=== PATIENT | male | born 1970 | race Caucasian/White ===

== ENCOUNTER 2016-08-17 05:57 | Inpatient (IN) | payer OTHER ==
[2016-08-17] MEDS ORDERED: METOCLOPRAMIDE 10 MG TABLET PO ONE (06:00)
[2016-08-17] MEDS ORDERED: ACETAMINOPHEN 1000MG/100 ML PREMIX IV ONE (06:00)
[2016-08-17] MEDS ORDERED: CELECOXIB 100 MG CAPSULE PO ONE (06:00)
[2016-08-17] MEDS ORDERED: FAMOTIDINE 20MG TABLET PO ONE (06:00)
[2016-08-17] MEDS ORDERED: MECLIZINE 25 MG TABLET PO ONE (06:00)
[2016-08-17] MEDS ORDERED: CLINDAMYCIN 600MG/50ML PREMIX 50 ML IVPB ONE (06:00)
[2016-08-17] MEDS ORDERED: RINGERS SOLUTION,LACTATED 1,000 ML IV SCH (09:45)
[2016-08-17] MEDS ORDERED: SENNOSIDES/DOCUSATE SODIUM UD CAPSULE PO PRN (09:45)
[2016-08-17] MEDS ORDERED: METOCLOPRAMIDE HCL 10 MG/2 ML VIAL IVP PRN (09:45)
[2016-08-17] MEDS ORDERED: DIPHENHYDRAMINE HCL 25 MG CAPSULE PO PRN (09:45)
[2016-08-17] MEDS ORDERED: OXYCODONE HCL 5 MG TABLET PO PRN (09:45)
[2016-08-17] MEDS ORDERED: MAGNESIUM HYDROXIDE 30 ML UDC PO PRN (09:45)
[2016-08-17] MEDS ORDERED: AL HYDROX/MAG HYDROX 30ML UD PO PRN (09:45)
[2016-08-17] MEDS ORDERED: TRAMADOL HCL 50 MG TABLET PO PRN ×2 (09:45)
[2016-08-17] MEDS ORDERED: ONDANSETRON HCL IV 4 MG/2 ML VIAL IVP PRN (09:45)
[2016-08-17] MEDS ORDERED: ZOLPIDEM TARTRATE 5 MG TABLET PO PRN (09:45)
[2016-08-17] MEDS: HYDROMORPHONE HCL 1 MG/ML CPJ IVP PRN ×4 (09:55→23:53)
[2016-08-17] MEDS ORDERED: TRANEXAMIC ACID 1,000 MG in 0.9 % SODIUM CHLORIDE 100ML 100 ML IVPB ONE (11:00)
[2016-08-17] MEDS: OXYCODONE HCL 5 MG TABLET PO PRN ×3 (11:15→21:28)
[2016-08-17] MEDS: ACETAMINOPHEN 1,000 MG/ 100 ML IV SCH ×4 (12:27→19:42)
[2016-08-17] MEDS ORDERED: BUPIVACAINE LIPOSOME 266MG/20ML VIAL IV ONE (14:12)
[2016-08-17] MEDS ORDERED: TRANEXAMIC ACID 1,000 MG/10 ML ML IV ONE (14:12)
[2016-08-17] MEDS ORDERED: BUPIVACAINE 0.25% W/EPI MPF 30ML VIAL IVP ONE (14:12)
--- NOTE | 2016-08-17 14:39 | Rehab Evaluation ---
Patient Information - Patient Information Diagnosis: OA right knee Ordered Treatment: PT Evaluate and Treat Status: Initial Evaluation Surgery: Yes (TKA right) Date of Surgery: 08/17/16 Past Medical/Surgical Hx: PAST MEDICAL/SURGICAL HISTORY Past Surgical History umbilical hernia repair; varicose vein repair; knee scopes PMH - Respiratory Hx Respiratory Disorders No Hx Pneumonia Yes: in past PMH - Cardiovascular Hx Cardiovascular Disorders Yes Hx Hypertension Yes Exercise Tolerance Good Comment: high cholesterol PMH - Neuro Hx Neurological Disorders No PMH - GI Hx Gastrointestinal Disorders No PMH - Hx Genitourinary Disorders No PMH - Endocrine Hx Endocrine Disorders No PMH - Musculoskeletal Hx Musculoskeletal Disorders Yes Hx Arthritis Yes Comment: R knee problems PMH - Psych Hx Psychiatric Problems No PMH - Hematology/Oncology Hx Hematology/Oncology No Disorders Precautions: [place], Fall - Time With Patient Total Time Spent With Patient (Min): 30 Treatment Procedures: Detail (Patient seen in room and feeling better with meds but claims does not need to go to bathroom yet. Removed CPM machine from bed then reviewed exercises with patient: quad, ham and glut sets, SLR with assist, heel slide and ankle pumps. Supine to sit with assist of trapeze and therapist for right LE, sit to stand with min assist after adjusted FWW for height, stepped in place as did not need to go to bathroom yet and IV in place. Back into bed with patient able to lift own right LE with left, replaced CPM, cryocuff and compressive pads for LES. Call light and tray table close and family close by.) Subjective Information - Subjective Information Per Patient Objective Data - Pain Pain Present: Yes Pain Scale Used: Numeric (1 - 10) (5-6) - Mental Status Patient Orientation: Oriented x3 - Visual Perception Appears within normal limits for therapeutic activities - ROM Within normal limits (Except right knee 0-55 degrees on CPM at this time.) - Strength/Tone Within normal limits (Able to do SLR with very little assist, quads weak yet.) - Coordination Appears within normal limits for therapeutic activities - Bed Mobility Needs Assist (Needs slight assist initially for up to edge of bed, up in bed with trapeze.) - Transfers Needs Assist (Supine to sit with min assist right LE, sit to stand with cues only and gait belt in place for safety, FWW.) - Balance Balance Sitting: Good Balance Standing: Good - Sensation Intact - Gait Detail (Marched in place 2-3 steps with FWW WBAT.) Therapy Assessment - Therapy Assessment Detail (Doing fairly well but has a lot of pain since spinal anesthesia wore off.) Patient Education - Patient Education Teaching Topic: Equipment Use, Exercise/Activity Response: Return Demonstration Teaching Method: Demonstration Teaching Recipient: Patient Barriers To Learning: None Problem List - Problem List Physical Therapy Problem List: Detail (1. Decreased normal mobility secondary to surgery 2. Decreased gait 3. Decreased function in general.) Goals - Goals Physical Therapy Goals: 1. Patient will be independent with bed mobility and supine to sit. 2. Patient will be able to ambulate community distances for going home safely. 3. Patient will be able to participate and self-care if not be independent. Prognosis - Prognosis Good (Some increased pain, maybe more than expected by this patient at this time.) Plan - Plan Physical Therapy Plan: Continue PT BID tomorrow and hopefully get ready to discharge home tomorrow night or Sunday am. Exercises, gait and steps necessary so can go home safely.
[2016-08-17] MEDS ORDERED: PROPOFOL 10 MG/ML VIAL IV ONE (15:45)
[2016-08-17] MEDS ORDERED: FENTANYL PF 100MCG/2ML VIAL IV ONE (15:45)
[2016-08-17] MEDS ORDERED: MIDAZOLAM HCL 2MG/2ML VIAL IV ONE (15:45)
[2016-08-17] MEDS: CLINDAMYCIN IV SCH ×2 (16:28→23:56)
[2016-08-17] MEDS: SODIUM CHLORIDE 0.9% IV SCH ×2 (16:28→23:56)
[2016-08-17] MEDS: FONDAPARINUX 2.5 MG/0.5 ML SYR SQ SCH (21:30)
[2016-08-18] MEDS: OXYCODONE HCL 5 MG TABLET PO PRN (01:43)
[2016-08-18] MEDS: ACETAMINOPHEN 1,000 MG/ 100 ML IV SCH ×2 (01:44)
[2016-08-18] MEDS: HYDROMORPHONE HCL 1 MG/ML CPJ IVP PRN ×3 (03:34→06:34)
[2016-08-18] MEDS: CLINDAMYCIN IV SCH (06:34)
[2016-08-18] MEDS: SODIUM CHLORIDE 0.9% IV SCH (06:34)
[2016-08-18] MEDS: PATIENT OWN MED: ATENOLOL 50 MG PO SCH ×3 (06:39→13:22)
[2016-08-18 06:41] LABS: HEMATOCRIT 41.3 % (42.0-52.0); HEMOGLOBIN 14.5 gm/dl (14.0-18.0); MEAN CELL VOLUME 84.5 fl (81-97); MEAN CORPUSCULAR HEMOGLOBIN 29.7 pg (27-33); MEAN CORPUSCULAR HGB CONC 35.1 g/dl (32-36); MEAN PLATELET VOLUME 11.2 fl (7.4-10.4); PLATELET COUNT 198 K/uL (130-400); RED BLOOD COUNT 4.89 M/uL (4.40-5.70); RED CELL DISTRIBUTION WIDTH 12.6 % (11.5-14.5); WHITE BLOOD COUNT W/O DIFF 15.7 K/uL (4.2-12.2)
[2016-08-18] MEDS: PATIENT OWN MED: PRAVASTATIN 40 MG PO SCH ×2 (06:41→13:22)
[2016-08-18] MEDS: PATIENT OWN MED: LOSARTAN 100 MG PO SCH ×2 (06:41→13:22)
[2016-08-18 06:44] LABS: INR 1.02; PROTHROMBIN TIME (PATIENT) 11.5 SECONDS (9.5-12.1)
[2016-08-18] MEDS: OXYCODONE/APAP 7.5MG/325MG TABLET PO PRN ×2 (09:13→12:48)
[2016-08-18] MEDS ORDERED: OXYCODONE/APAP 7.5MG/325MG TABLET PO PRN (09:45)
[2016-08-18] MEDS ORDERED: HYDROCODONE/APAP 7.5/325MG TABLET PO PRN ×2 (09:45)
[2016-08-18] MEDS ORDERED: ACETAMINOPHEN 325 MG TAB PO PRN (09:45)
[2016-08-18] MEDS ORDERED: CELECOXIB 100 MG CAPSULE PO SCH (10:00)
--- NOTE | 2016-08-18 10:41 | Physical Therapy Tx Note ---
Physical Therapy Tx Note - Treatment Note Tolerated: Good (Patient has quite a bit of pain yet especially with CPM so machine off today. Patient did very well with weightbearing today as tolerated. Able to do exercises even heel slide but quite a lot of pain yet with same.) Total Time Spent With Patient: 30 Physical Therapy Tx Note: Detail (Patient seen bedside and has had drain and IV removed, unhooked cryocuff and supine to sit with only slight assist with right LE, sit to stand with CGA and ambulated with FWW 40 feet into frye and back to bed with CGA only. Reviewed exercises and tried some seated then supine. Patient required only slight assist to lift leg back into bed, and difficult to do quad sets yet. Seated exercises for knee flexion and assist with extension. Re-attached cryocuff and compressive stockings.) Physical Therapy Problem List: Detail (1. Decreased normal mobility secondary to surgery 2. Decreased gait 3. Decreased function in general.) Physical Therapy Goals: 1. Patient will be independent with bed mobility and supine to sit. 2. Patient will be able to ambulate community distances for going home safely. 3. Patient will be able to participate and self-care if not be independent. Prognosis: Good (Able to ambulate safely with FWW and CGA but elevates shoulders , concentrating on shoulder depression.) Physical Therapy Plan: Continue PT BID tomorrow and hopefully get ready to discharge home tomorrow night or Sunday am. Exercises, gait and steps necessary so can go home safely.
--- NOTE | 2016-08-18 14:59 | Physical Therapy Tx Note ---
Physical Therapy Tx Note - Treatment Note Tolerated: Good (Patient still c/o a lot of pain, sitting in recliner chair is much better than being in bed and patient comfortable walking and safe with FWW now. Able to ambulate safely on stairs with rail and FWW.) Total Time Spent With Patient: 30 Physical Therapy Tx Note: Detail (Patient seen in room and seated in recliner leaned way back so that LES elevated above heart. Able to lower chair but came down quite fast at the end even with assistance and caused increased knee pain. Sit to stand with CGA only, ambulate 50 plus feet to stairs, ambulate down stairs three steps with rail and FWW, able to do correctly with minimal cues then back up three steps with rail and folded FWW. Ambulated back to bathroom and patient able to stand to void without assist then ambulated to chair and resumed reclined position without assist. Replaced cryocuff and call light, tray table close. Does not want to do any more exercises today. Does want to go home today if available.) Physical Therapy Problem List: Detail (1. Decreased normal mobility secondary to surgery 2. Decreased gait 3. Decreased function in general.) Physical Therapy Goals: 1. Patient will be independent with bed mobility and supine to sit. 2. Patient will be able to ambulate community distances for going home safely. 3. Patient will be able to participate and self-care if not be independent. Prognosis: Good (Patient doing much better with mobility now and slowly able to tolerate more activity. Wants to go home today and probably will do better in own environment.) Physical Therapy Plan: Continue PT BID tomorrow and hopefully get ready to discharge home tomorrow night or Sunday am. Exercises, gait and steps necessary so can go home safely. Patient is doing better and should do well going to own home today.
[2016-08-18] MEDS: FONDAPARINUX 2.5 MG/0.5 ML SYR SQ SCH (15:07)
--- NOTE | 2016-08-21 10:42 | Operative Note ---
DATE OF SURGERY: 08/17/2016 PREOPERATIVE DIAGNOSIS: Primary osteoarthritis of the right knee. POSTOPERATIVE DIAGNOSIS: Primary osteoarthritis of the right knee. OPERATIVE PROCEDURE: Right total knee arthroplasty. PROCEDURE: This 46-year-old male was taken to the operating room and placed in the supine position on the operating room table. Spinal anesthesia was induced by Department of Anesthesia. The right lower extremity was elevated. It was prepped with Hibiclens and draped in the usual sterile fashion. It was exsanguinated, and the tourniquet inflated to 300 mmHg. An anterior longitudinal midline incision was made followed by medial parapatellar arthrotomy incision. An intracondylar drill hole was made through the intramedullary alignment herberth and the distal femoral cutting block was pinned in 6 degrees of valgus and a 9 mm cut was made. Wafer of bone was removed. Sizing jig was affixed. A size 72.5 was seen to be the appropriate size. A 4-in-1 cutting block was then pinned in 3 degrees of external rotation. Appropriate cuts were made, and the wafers of bone were removed. We then directed our attention to the intercondylar notch and we resected the anterior cruciate ligament. The extramedullary alignment guide was then used to cut the proximal tibia, referencing a 10 mm cut off the lateral tibial plateau; however, because of bone loss on the medial side, an additional 2 mm was taken to get below the medial subchondral bone. We subsequently made the cut after the appropriate alignment had been assured, and a 3 degree posterior slope cut was made. We then resected the remnants of the menisci and osteophytes from the posterior aspect of the joint. Osteophytes were removed from around the proximal medial tibial plateau as well. The tibia was measured to a size 83. Stem punch was subsequently used. We then directed our attention to trial components, and a 12 mm anterior stabilized bearing seemed to the appropriate size given its full range of motion with excellent stability. The patella was measured and cut and restored to anatomic height with a 40 x 10 mm patella. The patellofemoral joint was stable. All trial components were then removed. Exparel was injected into the posteromedial and lateral corners of the joint, and after the insertion of all components, the remainder of the Exparel was injected into the periosteum and joint capsule, the proximal tibia, and distal femur. The wound was copiously irrigated with pulsed lavage lactated Ringer's solution and all debris removed from the joint. The bony surfaces were dried. All components were cemented and excess cement was removed after the insertion of each component. Initially, we placed the tibia base plate followed by the 12 mm tibial bearing, and the femur, and finally the patella. Once the cement had hardened, he was again take through range of motion and found to be very stable. Drain was placed through a separate stab incision. The arthrotomy incision was then closed with #2 Vicryl, subcutaneous tissue closed with O Vicryl, and the skin was stapled. Polar Care applied, and the patient taken to the recovery room in satisfactory condition. GROSS PATHOLOGY: This patient demonstrated a severe medial compartment osteoarthritis. There was evidence of a tear of the medial meniscus as well. Patient's ACL was clearly torn as well. The patient had marked osteophyte formation on the medial tibial plateau and the medial femoral condyle. Final components inserted were a [employer] Vanguard size 72.5 cruciate-retaining femoral component, an 83 tibia base plate, a 12 mm anterior stabilized D1 bearing, and a size 40 x 10 mm patella was used. Fede [facility] centerDO ashley CC: CHANDNI OSRIANO D.O. NICOLE
--- NOTE | 2016-08-21 17:59 | Discharge Summary ---
DATE OF ADMISSION: 08/17/2016 DATE OF DISCHARGE: 08/19/2016 ADMITTING DIAGNOSIS: Osteoarthritis of the right knee. DISCHARGE DIAGNOSIS: Osteoarthritis of the right knee. OPERATIVE PROCEDURE: Elective right total knee arthroplasty. This 46-year-old male was taken to the operating room for total knee arthroplasty on 08/17/2016 and tolerating the operative procedure well. The drain was removed the first postoperative day. He progressed well with physical therapy and was ready for discharge on 08/19/2016. The patient did not demonstrate any sign of complication during the course of his hospitalization. The patient will be discharged on 08/19/2016 with outpatient physical therapy. He will wear his JULES hose during the day and remove them at night. He will take aspirin 325 mg b.i.d. He was given a prescription for Percocet 7.5 one or two every 6 hours as necessary for pain and he was given 80. Routine wound care instructions were given. He will follow up in the office in 2 weeks. Should he have any problems prior to being seen, he was instructed to call my office. DO NICOLE Cantu
== END 2016-08-18 19:25 | disposition home or self-care (01) | DRG 470 ==
LOC: MEDSURG 05:57
PROVIDERS: ADMIT Orthopaedic Surgery; ATTEND Orthopaedic Surgery
PROC: 0SRC0J9 Replacement of Right Knee Joint with Synthetic Substitute, Cemented, Open Approach (ICD-10-PCS; principal; 2016-08-17 07:30)
DX: M17.11 Unilateral primary osteoarthritis, right knee (principal); I10 Essential (primary) hypertension; E78.00 Pure hypercholesterolemia, unspecified
CPT/HCPCS: 85025; 85610; 94760; 97110; 97116; 97161; 97530; J1170; J7120

== ENCOUNTER 2018-08-27 05:48 | Day surgery (SDC) | payer BC ==
[2018-08-27] MEDS ORDERED: FENTANYL PF 100MCG/2ML VIAL IV ONE (05:49)
[2018-08-27] MEDS ORDERED: LIDOCAINE 2% MDV (20MG/ML) 20ML VIAL IV ONE (05:49)
[2018-08-27] MEDS ORDERED: DEXAMETHASONE 4 MG/ML 1ML VIAL IVP ONE (05:49)
[2018-08-27] MEDS ORDERED: TRANEXAMIC ACID 1,000 MG/10 ML ML IV ONE (05:49)
[2018-08-27] MEDS ORDERED: ROPIVACAINE HCL (NAROPIN) /PF 5MG/ML 20ML VIAL IV ONE (05:49)
[2018-08-27] MEDS ORDERED: 0.9 % SODIUM CHLORIDE 100ML 100 ML IV ONE (05:49)
[2018-08-27] MEDS ORDERED: MIDAZOLAM HCL 2MG/2ML VIAL IV ONE (05:49)
[2018-08-27] MEDS ORDERED: PROPOFOL 10 MG/ML VIAL IV ONE (05:49)
[2018-08-27] MEDS ORDERED: MECLIZINE 25 MG TABLET PO ONE (06:00)
[2018-08-27] MEDS ORDERED: METOCLOPRAMIDE 10 MG TABLET PO ONE (06:00)
[2018-08-27] MEDS ORDERED: CLINDAMYCIN 600MG/50ML PREMIX 600 MG/50 ML BAG IVPB ONE (06:00)
[2018-08-27] MEDS ORDERED: FAMOTIDINE 20MG TABLET PO ONE (06:00)
[2018-08-27] MEDS ORDERED: OXYCODONE HCL/APAP 5MG/325MG TABLET PO PRN (09:15)
[2018-08-27] MEDS ORDERED: METOCLOPRAMIDE HCL 10 MG/2 ML VIAL IVP PRN (09:15)
[2018-08-27] MEDS ORDERED: ZOLPIDEM TARTRATE 5 MG TABLET PO PRN (09:15)
[2018-08-27] MEDS ORDERED: MAGNESIUM HYDROXIDE 30 ML UDC PO PRN (09:15)
[2018-08-27] MEDS ORDERED: HYDROCODONE/APAP 5/325MG TABLET PO PRN ×2 (09:15)
[2018-08-27] MEDS ORDERED: SENNOSIDES/DOCUSATE SODIUM UD CAPSULE PO PRN (09:15)
[2018-08-27] MEDS ORDERED: AL HYDROX/MAG HYDROX 30ML UD PO PRN (09:15)
[2018-08-27] MEDS ORDERED: ONDANSETRON HCL IV 4 MG/2 ML VIAL IVP PRN (09:15)
[2018-08-27] MEDS ORDERED: NALOXONE 0.4 MG/1 ML VIAL IVP PRN (09:15)
[2018-08-27] MEDS ORDERED: DIPHENHYDRAMINE HCL 25 MG CAPSULE PO PRN (09:15)
[2018-08-27] MEDS ORDERED: TRAMADOL HCL 50 MG TABLET PO PRN ×2 (09:15)
[2018-08-27] MEDS: RINGERS SOLUTION,LACTATED 1,000 ML IV SCH (10:07)
[2018-08-27] MEDS ORDERED: TRANEXAMIC ACID 1,000 MG in 0.9 % SODIUM CHLORIDE 100ML 100 ML IVPB ONE (11:00)
[2018-08-27] MEDS: HYDROMORPHONE HCL 2 MG/ML VIAL IV PRN ×8 (11:24→22:23)
[2018-08-27] MEDS: FONDAPARINUX 2.5 MG/0.5 ML SYR SQ SCH (14:30)
[2018-08-27] MEDS: OXYCODONE HCL/APAP 5MG/325MG TABLET PO PRN ×2 (14:31→20:21)
[2018-08-27] MEDS: CLINDAMYCIN 600MG/50ML PREMIX 600 MG/50 ML BAG IVPB SCH ×2 (14:32→22:24)
--- NOTE | 2018-08-27 16:46 | Rehab Evaluation ---
Patient Information - Patient Information Diagnosis: OA of L knee Ordered Treatment: PT Evaluate and Treat Status: Initial Evaluation Surgery: Yes (L TKA) Date of Surgery: 08/27/18 Past Medical/Surgical Hx: PAST MEDICAL/SURGICAL HISTORY Past Surgical History umbilical hernia repair; varicose vein repair; knee scopes PMH - Respiratory Hx Respiratory Disorders No Hx Pneumonia Yes: in past PMH - Cardiovascular Hx Cardiovascular Disorders Yes Hx Hypertension Yes Exercise Tolerance Good Comment: high cholesterol PMH - Neuro Hx Neurological Disorders No PMH - GI Hx Gastrointestinal Disorders No PMH - Hx Genitourinary Disorders No PMH - Endocrine Hx Endocrine Disorders No PMH - Musculoskeletal Hx Musculoskeletal Disorders Yes Hx Arthritis Yes Comment: R knee problems PMH - Psych Hx Psychiatric Problems No PMH - Hematology/Oncology Hx Hematology/Oncology No Disorders Premorbid Status: Detail (The patient was independent with ambulation prior to surgery.) Social History: Detail Precautions: [place], Fall, Other (WBAT on the L LE) - Time With Patient Total Time Spent With Patient (Min): 30 Treatment Procedures: Detail (Initial Evaluation, gait training) Subjective Information - Subjective Information Per Patient (The patient complained of L knee pain level 9 at the highest.) Objective Data - Mental Status Patient Orientation: Oriented x3 - Visual Perception Appears within normal limits for therapeutic activities - ROM Not within normal limits (The patient's L knee was limited as to be expected following surgery. All other LE AROM was WNL.) - Strength/Tone Not within normal limits (The patient's L LE strength was not tested , however was functional ie: patient was able to lift LE in bed. The patient's RLE strength was WNL.) - Bed Mobility Independent (The patient was independent with sit to supine transfer and scooting up in bed. The patient required minimal PA to lift L LE due to pain with supine to sit transfer.) - Transfers Independent (The patient was independent with sit to and from stand transfer and toilet transfer.) - Balance Balance Sitting: Good Balance Standing: Good - Sensation Intact - Gait Detail (The patient ambulated with a standard walker to the bathroom (7 feet x 1 ) and into the hallway 65 feet x 1 with supervision for safety only, WBAT on the L LE.) Therapy Assessment - Therapy Assessment Detail (The patient did well with bed mobilty, transfers and ambulation. Feel the patient will progress well.) Problem List - Problem List Physical Therapy Problem List: Detail (1) L LE pain 2) Decreased L knee AROM and L LE strength) Goals - Goals Physical Therapy Goals: 1) The patient will be independent with bed mobility. 2 ) The patient will be independent with TKA HEP. 3) The patient will ambulate on stairs with supervision for safety only using proper technique. Prognosis - Prognosis Good Plan - Plan Physical Therapy Plan: PT 1-2 sessions for gait training on stairs, bed mobility and instruction in HEP.
[2018-08-27] MEDS: ASPIRIN 325 MG TAB ENTERIC-COATED PO SCH (22:23)
[2018-08-28] MEDS: OXYCODONE HCL/APAP 5MG/325MG TABLET PO PRN ×3 (02:38→13:41)
[2018-08-28] MEDS: RINGERS SOLUTION,LACTATED 1,000 ML IV SCH (04:04)
[2018-08-28] MEDS: HYDROMORPHONE HCL 2 MG/ML VIAL IV PRN (05:25)
[2018-08-28] MEDS: CLINDAMYCIN 600MG/50ML PREMIX 600 MG/50 ML BAG IVPB SCH (06:01)
--- NOTE | 2018-08-28 08:30 | Operative Note ---
DATE OF SURGERY: 08/27/2018 Surgeon: Fede Alegria DO PREOPERATIVE DIAGNOSIS: Osteoarthritis of the left knee. POSTOPERATIVE DIAGNOSIS: Osteoarthritis of the left knee. OPERATION: Left total knee arthroplasty. DESCRIPTION OF PROCEDURE: This 48-year-old male was taken to the operating room and placed in the supine position on the operating room table where spinal anesthesia had been induced by the department of anesthesia. The left lower extremity was then elevated. It was prepped with Hibiclens and draped in the usual sterile fashion. It was exsanguinated and the tourniquet inflated to 300 mmHg. An anterior longitudinal midline incision was made followed by a medial parapatellar arthrotomy incision. An intracondylar drill hole was made for the intramedullary alignment herberth, and a 6-degree valgus 9 mm cut was made in the distal femur. The wafers of bone were removed. Sizing jig was affixed and size 75 was seen to be the appropriate size in both the anterior-posterior and medial-lateral directions. Therefore, the cutting block was pinned in 3 degrees of external rotation. The appropriate cuts were made. We then directed our attention to the proximal tibia, and an extramedullary alignment guide was used to cut the proximal tibia referencing a 10 mm cut off the lateral tibial plateau. Once the alignment jig had been set appropriately, the cutting block was pinned in 3 degrees, and a 3-degree posterior slope cut was made. The tibia was sized to a size 83. Remnants of the menisci and osteophytes had been removed from the posterior aspect of the joint. The patella was then measured, cut, and restored to anatomic height with a 40 x 10 mm patella. The trial components were placed in the knee and a size 12 mm bearing was seen to be the appropriate size. The knee was taken through range of motion with excellent stability noted throughout. All trial components were then removed and the wound copiously irrigated with pulse lavage lactated Ringer's solution removing all debris from the joint. All bone surfaces were dried and all components were cemented. We began with the tibial baseplate and a size 82 tibia baseplate was cemented into place followed by the insertion of the 12 mm tibial bearing. The femur was subsequently cemented and finally the patella. Once the cement had hardened, the knee was again taken through range of motion and found to be stable. A drain was placed through a separate stab incision, and the arthrotomy incision closed with a #2 Vicryl. The subcutaneous tissue was closed with 0 Vicryl and the skin was stapled. Sterile dressings with a Polar Care were applied. The patient was taken to the recovery room in satisfactory condition. GROSS PATHOLOGY: This patient demonstrated severe osteoarthritic change of the medial compartment with full-thickness articular cartilage loss noted on both surfaces with grade 3 changes noted on the patella with the lateral compartment being relatively spared. Final components inserted were a [employer] Vanguard size 75 cruciate retaining femoral component, a 12 mm anterior stabilized E1 bearing, 83 tibia baseplate, and a 40 x 10 mm patella. All scrub personnel wore personal isolation suits. CC: Vaughn JOSEPH
[2018-08-28] MEDS ORDERED: SIMVASTATIN 20 MG TABLET PO SCH (10:00)
[2018-08-28] MEDS ORDERED: HYDROCHLOROTHIAZIDE 25 MG TABLET PO SCH (10:00)
[2018-08-28] MEDS ORDERED: ATENOLOL 50 MG TABLET PO SCH (10:00)
[2018-08-28] MEDS ORDERED: LOSARTAN POTASSIUM 100 MG TABLET PO SCH (10:00)
[2018-08-28] MEDS: ASPIRIN 325 MG TAB ENTERIC-COATED PO SCH (10:49)
--- NOTE | 2018-08-28 11:16 | Rehab Evaluation ---
Patient Information - Patient Information Diagnosis: OA of L knee Ordered Treatment: OT Evaluate and Treat Status: Initial Evaluation Surgery: Yes (L TKA) Date of Surgery: 08/27/18 Past Medical/Surgical Hx: PAST MEDICAL/SURGICAL HISTORY Past Surgical History umbilical hernia repair; varicose vein repair; knee scopes PMH - Respiratory Hx Respiratory Disorders No Hx Pneumonia Yes: in past PMH - Cardiovascular Hx Cardiovascular Disorders Yes Hx Hypertension Yes Exercise Tolerance Good Comment: high cholesterol PMH - Neuro Hx Neurological Disorders No PMH - GI Hx Gastrointestinal Disorders No PMH - Hx Genitourinary Disorders No PMH - Endocrine Hx Endocrine Disorders No PMH - Musculoskeletal Hx Musculoskeletal Disorders Yes Hx Arthritis Yes Comment: R knee problems PMH - Psych Hx Psychiatric Problems No PMH - Hematology/Oncology Hx Hematology/Oncology No Disorders Premorbid Status: Detail (The patient was independent with ambulation prior to surgery. He was Ind with yard work, his girlfriend was responsible for meal prep, laundry and home mgmt.) Social History: Detail (Pt lives with girlfriend in a single story house. He has 1 step and no railing at the entrance. He has a tub/shower combination with a seat and handrailing as well as an elevated toilet with no handrailing. He has a standard walker, cane, crutches and tub seat.) Precautions: [place], Fall, Other (WBAT on the L LE) - Time With Patient Total Time Spent With Patient (Min): 45 Treatment Procedures: Detail (OT eval low complexity) Subjective Information - Subjective Information Per Patient Objective Data - Pain Pain Present: Yes (7-01/25) - Mental Status Patient Orientation: Oriented x3 - Visual Perception Appears within normal limits for therapeutic activities - ROM Within normal limits (Ji UE AROM WNL) - Strength/Tone Within normal limits (Ji UE strength WNL) - Coordination Appears within normal limits for therapeutic activities - Bed Mobility Independent (Ind with supine to sit and sit to supine.) - Transfers Independent (Ind with sit to stand from EOB.) - Balance Balance Sitting: Good Balance Standing: Good - Sensation Intact - Gait Detail (Pt ambulating in hallway with walker Indly.) - ADL's/IADL's Detail (Pt educated and able to demonstrate learning of modified LE dressing techniques including doffing slipper socks, donning underwear, pants and slip on shoes. Reviewed kitchen and shower safety and modifications, pt verbalized understanding.) Therapy Assessment - Therapy Assessment Detail (Pt is Ind with modified LE dressing techniques.) Problem List - Problem List Physical Therapy Problem List: Detail (1) L LE pain 2) Decreased L knee AROM and L LE strength) Occupational Therapy Problem List: Detail (No current IP OT problems identified. ) Goals - Goals Physical Therapy Goals: 1) The patient will be independent with bed mobility. 2 ) The patient will be independent with TKA HEP. 3) The patient will ambulate on stairs with supervision for safety only using proper technique. Occupational Therapy Goals: No current IP OT goals identified. Prognosis - Prognosis Good Plan - Plan Physical Therapy Plan: PT 1-2 sessions for gait training on stairs, bed mobility and instruction in HEP. Occupational Therapy Plan: No further IP OT recommended. Thank you for this referral.
[2018-08-28] MEDS: FONDAPARINUX 2.5 MG/0.5 ML SYR SQ SCH (13:40)
--- NOTE | 2018-08-28 14:24 | Physical Therapy Tx Note ---
Physical Therapy Tx Note - Treatment Note Tolerated: Good Total Time Spent With Patient: 30 Physical Therapy Tx Note: Detail (The patient was in bed when PT arrived. The patient was able to acheive supine to and from transfer with using nonsurgical leg to lif surgical leg. The patient was independent scooting up in bed. The patient was independent with sit to and from stand transfer. The patient ambulated 100 feet x 1 with standard walker independently WBAT on the L LE. The patient ambulated on stairs using proper technique with supervision for safety only. The patient completed all TKA exercises using proper technique except for SLR. The patient was aware of proper technique using strap to lift leg. The patient has met all inpatient PT goals and is discharged from inpatient PT.) Physical Therapy Problem List: Detail (1) L LE pain 2) Decreased L knee AROM and L LE strength) Physical Therapy Goals: 1) The patient will be independent with bed mobility ( Goal Met). 2) The patient will be independent with TKA HEP (Goal Met). 3) The patient will ambulate on stairs with supervision for safety only using proper technique. (Goal Met) Physical Therapy Plan: The patient has met all inpatient PT goals. The patient is to recieve Out patient PT.
--- NOTE | 2018-08-29 08:30 | Discharge Summary ---
DATE OF ADMISSION: 08/27/2018 DATE OF DISCHARGE: 08/28/2018 ADMITTING DIAGNOSIS: Osteoarthritis of the left knee. DISCHARGE DIAGNOSIS: Osteoarthritis of the left knee. OPERATIVE PROCEDURE: Elective left total knee arthroplasty. HOSPITAL COURSE: This 48-year-old male was admitted to the hospital for elective total knee arthroplasty. He tolerated the operative procedure well and was ready for discharge on 08/28/2018. He was instructed to wear his JULES during the day and remove them at night. He will take aspirin 325 mg daily for 2 weeks. He was given a prescription for Percocet 5/325 mg, #40, 1 every 4 hours as necessary for pain. He will follow up in 2 weeks. Routine wound care instructions were given. Should he have any problems prior to being seen, he was instructed to call my office. NICOLE
== END 2018-08-28 14:35 | disposition home or self-care (01) ==
LOC: SUR 05:48 → MEDSURG 09:13 → SUR 09:13 → MEDSURG 09:18 → SUR 08-28 14:35
PROVIDERS: ATTEND Orthopaedic Surgery
DX: M17.12 Unilateral primary osteoarthritis, left knee (principal); I10 Essential (primary) hypertension; E78.00 Pure hypercholesterolemia, unspecified; F17.210 Nicotine dependence, cigarettes, uncomplicated
CPT/HCPCS: 27447; 01402; 64447; 36416; 82948; J3010; J1170 ×2; J1652 ×2; J3490; J2795; 76942; 97110; 97530; J7120